=== PATIENT | female | born 1950 | race African-American/Black ===

== ENCOUNTER → 2017-10-29 | Outpatient (CLI) | payer MEDICARE, BC | END | disposition home or self-care (01) | LOC: MAMMO 14:26 | DX: Z12.31 Encounter for screening mammogram for malignant neoplasm of breast (principal) | CPT/HCPCS: 77063; 77067 ==

== ENCOUNTER → 2018-07-29 | Outpatient (CLI) | payer MEDICARE, BC ==
--- NOTE | 2018-07-29 12:46 | CARD ---
MR#: [id number] Date of Study: 07/29/2018 Ordering Physician: NEHAL BIRD, Referring Physician: NEHAL BIRD, Tech: Alanna Aguilar RDCS APPROVED REPORT EXAM: Two-dimensional and M-mode echocardiogram with Doppler and color Doppler. Other Information Quality : Fair INDICATION Fatigue Hypertension/HCVD RISK FACTORS Hypertension 2D DIMENSIONS RVDd2.1 (2.9-3.5cm)Left Atrium(2D)3.5 (1.6-4.0cm) IVSd1.2 (0.7-1.1cm)Aortic Root(2D)2.7 (2.0-3.7cm) LVDd4.0 (3.9-5.9cm)LVOT Diameter2.1 (1.8-2.4cm) PWd1.2 (0.7-1.1cm)LVDs2.8 (2.5-4.0cm) FS (%) 30.3 %SV40.5 ml LVEF(%)58.2 (>50%) Aortic Valve AoV Peak Marquis.151.6cm/sAoV VTI31.7cm AO Peak GR.9.2mmHgLVOT Peak Marquis.95.6cm/s LVOT VTI 20.72cmAO Mean GR.5mmHg JOSEMANUEL (VMAX)2.10os3COZ (VTI)2.31cm2 AI P 1/2 [id number] Mitral Valve MV E Axnfbowm96.0cm/sMV DECEL [id number] MV A Hbfwmftm507.5cm/sMV ZME97kr E/A Ratio0.6MVA (PHT)3.05cm2 TDI E/Lateral E'12.5E/Medial E'13.5 Tricuspid Valve TR P. Fkylfytp174nr/sRAP KXVDCOFF4qvCg TR Peak Gr.30itKsVHFW49jaGs Pulmonary Vein S1 Bupeioev91.0cm/sD2 Nomzirdk63.6cm/s LEFT VENTRICLE The left ventricle is normal size. There is mild concentric left ventricular hypertrophy. The left ve ntricular systolic function is normal and the ejection fraction is within normal range. The Ejection Fraction is 55-60%. There is normal LV segmental wall motion. Transmitral Doppler flow pattern is Gra de I-abnormal relaxation pattern. RIGHT VENTRICLE The right ventricle is normal size. The right ventricular systolic function is normal. ATRIA The left atrium size is normal. The right atrium size is normal. The interatrial septum is intact wit h no evidence for an atrial septal defect or patent foramen ovale as noted on 2-D or Doppler imaging. AORTIC VALVE The aortic valve is calcified but opens well. Doppler and Color Flow revealed trace aortic regurgitat ion. There is no significant aortic valvular stenosis. MITRAL VALVE The mitral valve is calcified but opens well. Posterior mitral annular calcification is mild. There i s no evidence of mitral valve prolapse. There is no mitral valve stenosis. Doppler and Color Flow rev ealed no mitral valve regurgitation noted. TRICUSPID VALVE The tricuspid valve is normal in structure and function. Doppler and Color Flow revealed trace tricus pid regurgitation. There is mild pulmonary hypertension. The PA pressure was estimated at 38 mmHg. Th ere is no tricuspid valve stenosis. PULMONIC VALVE The pulmonic valve is not well visualized. Doppler and Color Flow revealed no pulmonic valvular regur gitation. There is no pulmonic valvular stenosis. GREAT VESSELS The aortic root is normal in size. The ascending aorta is not well seen. The IVC is normal in size an d collapses >50% with inspiration. PERICARDIAL EFFUSION There is no evidence of significant pericardial effusion. Critical Notification Critical Value: No <Conclusion> The left ventricle is normal size. The left ventricular systolic function is normal and the ejection fraction is within normal range. The Ejection Fraction is 55-60%. There is mild concentric left ventricular hypertrophy. There is no significant aortic valvular stenosis. Doppler and Color Flow revealed trace aortic regurgitation. Doppler and Color Flow revealed no mitral valve regurgitation noted. Doppler and Color Flow revealed trace tricuspid regurgitation. There is mild pulmonary hypertension. The PA pressure was estimated at 38 mmHg. Signed by : Nehal Bird MD Electronically Approved : 07/29/2018 12:46:06
== END | disposition home or self-care (01) ==
LOC: ECHO 10:25
PROVIDERS: ATTEND Internal Medicine Cardiovascular Disease
DX: I08.0 Rheumatic disorders of both mitral and aortic valves (principal); I11.9 Hypertensive heart disease without heart failure; I27.20 Pulmonary hypertension, unspecified
CPT/HCPCS: 93306

== ENCOUNTER → 2019-01-13 | Outpatient (CLI) | payer BC, MEDICARE ==
--- NOTE | 2019-01-13 13:58 | RAD ---
DATE: 01/13/2019. EXAM: MAMMO [facility] SCREENING BILATERAL. HISTORY: Routine mammographic screening. COMPARISON: 10/29/2017, 07/05/2015. This study was interpreted with the benefit of Computerized Aided Detection (CAD). FINDINGS: Breast Density: SCATTERED The breast parenchyma shows scattered fibroglandular densities. Breast parenchyma level B.. A focus of scarring superolaterally on the left is stable. Scattered calcifications are benign. There are no suspicious masses, microcalcifications or architectural distortion. BI-RADS CATEGORY: 2 BENIGN FINDING(S). RECOMMENDED FOLLOW-UP: 12M 12 MONTH FOLLOW-UP. PQRS compliance statement: Patient information was entered into a reminder system with a target due date 01/14/2020 for the next mammogram. Mammography is a sensitive method for finding small breast cancers, but it does not detect them all and is not a substitute for careful clinical examination. A negative mammogram does not negate a clinically suspicious finding and should not result in delay in biopsying a clinically suspicious abnormality. "Our facility is accredited by the [employer] Mammography Program."
== END | disposition home or self-care (01) ==
LOC: MAMMO 10:56
PROVIDERS: ATTEND Family Medicine
DX: Z12.31 Encounter for screening mammogram for malignant neoplasm of breast (principal); N64.89 Other specified disorders of breast
CPT/HCPCS: 77063; 77067

== ENCOUNTER → 2019-04-16 | Outpatient (CLI) | payer MEDICARE, BC ==
[2019-04-14 11:08] VITALS: BP 188/91
--- NOTE | 2019-04-16 11:17 | RAD ---
RENAL COMPLETE BILATERAL: 04/16/2019 9:30 AM Indication: 68 years old Female. Chronic kidney disease stage III. Comparison: None. FINDINGS: Sonographic evaluation the kidneys is performed as an grayscale and color Doppler. Right kidney: Size: 10.2 x 4.4 x 3.8cm. Collecting System: No hydronephrosis. No renal calculi detected. Parenchyma: Normal echotexture and morphology. No focal contour deforming renal mass. Left kidney: Size: 10.4 x 4.5 x 4.0cm. Collecting System: No hydronephrosis. No renal calculi detected. Parenchyma: Normal echotexture and morphology. No focal contour deforming renal mass. Urinary bladder: Unremarkable. Aorta is normal in caliber measuring 2.2 cm approximately, 1.8 cm in the mid aorta and 1.3 cm distally. IVC is patent. IMPRESSION: No sonographic evidence for obstructive uropathy. Electronically signed by: Malka Meade MD (04/16/2019 11:14 AM) [id number]
== END | disposition home or self-care (01) ==
LOC: US 08:47
PROVIDERS: ATTEND Nurse Practitioner Adult Health
DX: N18.3 Chronic kidney disease, stage 3 (moderate) (principal)
CPT/HCPCS: 76770

== ENCOUNTER → 2020-01-19 | Outpatient (CLI) | payer OTHER, MEDICARE, BC ==
[2019-04-21 09:31] VITALS: BP 150/69
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
== END ==
LOC: MRI 10:11
PROVIDERS: ATTEND Chiropractor
DX: M71.22 Synovial cyst of popliteal space [Baker], left knee (principal)
CPT/HCPCS: 73721

== ENCOUNTER → 2021-08-05 | Outpatient (CLI) | payer MEDICARE, BC ==
[2019-04-21 09:31] VITALS: BP 150/69
--- NOTE | 2021-08-07 16:13 | CARD ---
MR#: [id number] Date of Study: 08/05/2021 Ordering Physician: NEHAL NICHOLE, Referring Physician: NEHAL NICHOLE, Tech: Anali Ramirez [facility] APPROVED REPORT EXAM: Two-dimensional and M-mode echocardiogram with Doppler and color Doppler. Other Information Quality : AverageHR: 71bpm Rhythm : NSRTechnically limited study due to body habitus. INDICATION Hypertension/HCVD RISK FACTORS Hypertension Obesity 2D DIMENSIONS RVDd3.7 (2.9-3.5cm)Left Atrium(2D)4.2 (1.6-4.0cm) IVSd1.5 (0.7-1.1cm)Aortic Root(2D)3.0 (2.0-3.7cm) LVDd4.3 (3.9-5.9cm)LVOT Diameter1.8 (1.8-2.4cm) PWd1.3 (0.7-1.1cm)LVDs2.7 (2.5-4.0cm) FS (%) 35.7 %SV53.1 ml LVEF(%)65.6 (>50%) Aortic Valve AoV Peak Marquis.180.9cm/sAoV VTI40.2cm AO Peak GR.13.1mmHgLVOT Peak Marquis.136.3cm/s AO Mean GR.7mmHgAVA (VMAX)1.83cm2 Mitral Valve MV E Nrfvbjro016.8cm/sMV DECEL [id number] MV A Rdyhlyof907.9cm/sE/A Ratio1.0 Tricuspid Valve TR P. Ooysrrug409es/sTR Peak Gr.20mmHg LEFT VENTRICLE The left ventricle is normal size. There is mild concentric left ventricular hypertrophy. The left ve ntricular systolic function is normal and the ejection fraction is within normal range. Estimated eje ction fraction 60%. There is normal LV segmental wall motion. Tissue Doppler imaging reveals mild lef t ventricular diastolic dysfunction. RIGHT VENTRICLE The right ventricle is normal size. There is normal right ventricular wall thickness. The right ventr icular systolic function is normal. ATRIA The left atrium size is normal. The right atrium size is normal. The interatrial septum is intact wit h no evidence for an atrial septal defect or patent foramen ovale as noted on 2-D or Doppler imaging. AORTIC VALVE The aortic valve is normal in structure and function. Doppler and Color Flow revealed no significant aortic regurgitation. There is no significant aortic valvular stenosis. MITRAL VALVE The mitral valve is mildly calcified. There is no evidence of mitral valve prolapse. There is no mitr al valve stenosis. Doppler and Color-flow revealed trace mitral regurgitation. TRICUSPID VALVE The tricuspid valve is normal in structure and function. Doppler and Color Flow revealed trace tricus pid regurgitation. Estimated PAP 40 mmHg. There is no tricuspid valve stenosis. PULMONIC VALVE Doppler and Color Flow revealed mild pulmonic valvular regurgitation. There is no pulmonic valvular s tenosis. GREAT VESSELS The aortic root is normal in size. The ascending aorta is normal in size. The IVC is normal in size a nd collapses >50% with inspiration. PERICARDIAL EFFUSION There is no evidence of significant pericardial effusion. Critical Notification Critical Value: No <Conclusion> The left ventricular systolic function is normal and the ejection fraction is within normal range. E stimated ejection fraction 60%. There is normal LV segmental wall motion. Doppler and Color Flow revealed trace tricuspid regurgitation. Estimated PAP 40 mmHg. Signed by : Nirmal Abdullahi, Electronically Approved : 08/07/2021 16:12:44
== END ==
LOC: ECHO 08:18
PROVIDERS: ATTEND Internal Medicine Cardiovascular Disease
DX: I08.8 Other rheumatic multiple valve diseases (principal); I27.20 Pulmonary hypertension, unspecified
CPT/HCPCS: 93306; C8929